=== PATIENT | female | born 1950 | race Caucasian/White ===

== ENCOUNTER 2016-05-09 01:05 | Emergency (ER) | payer MEDICARE ==
[~2016-05-09] VITALS: Ht 165.1 cm; Wt 99.8 kg
[~2016-05-09 01:05] MED LIST: AMIO200T2 PO; AMIO200T7 PO; ASPI325T4 PO; CARB1TAB44 PO; CHRO1TAB4 PO; CLON0.5T3 PO; DIAZ5TAB4 PO; DILT120C4 PO; ERYT250T14 PO; FLUO20TA11 PO; FLUO40CA2 PO; FLUO40CA9 PO; HYDR-2666 PO; Indomethacin PO; LEVO75TA5 PO; LEVO88TA2 PO; LISI-338 PO; LISI10TA PO; METR500T PO; ONDA4TAB7 PO; OXYC-250 PO; PANT40GR PO; PANT40TA3 PO; PANT40TA5 PO; PRAV10TA2 PO; PRAV40TA PO; PRIM250T PO; PRIM50TA24 PO; RASP100C PO; Sennosides/Docusate Sodium PO; TAMS0.4C97 PO; WARF6TAB PO; ZOLP10TA PO; ZOLP5TAB PO; vitaminB12; warfarin PO
[2016-05-09] MEDS ORDERED: IV NORMAL SALINE 1000ML BAG 1,000 ML IV ONE (02:00)
[2016-05-09] MEDS ORDERED: MECLIZINE HCL 12.5 MG TABLET. PO ONE (02:00)
[2016-05-09] MEDS ORDERED: ONDANSETRON PF 4 MG/2 ML VIAL. IV ONE (02:00)
[2016-05-09 02:01] LABS: BASO # 0.1 x10^3/uL (0.0-0.2); BASO % 1 % (0-3); EOS % 4 % (0-3); LYMPH # 7.5 x10^3/uL (1.0-4.8); LYMPH % 62 % (24-48); MEAN CORPUSCULAR HEMOGLOBIN 31 pg (25-35); MEAN CORPUSCULAR HGB CONC 33 g/dL (31-37); MEAN CORPUSCULAR VOLUME 94 fL (79-100); MONO % 4 % (0-9); NEUT % 30 % (31-73); PLATELET COUNT 188 x10^3/uL (140-400); RED BLOOD COUNT 4.25 x10^6/uL (3.50-5.40); WHITE BLOOD COUNT 12.1 x10^3/uL (4.0-11.0)
--- NOTE | 2016-05-09 02:03 | PHYS DOC ---
Past Medical History Past Medical History: A-Fib, Anxiety, Arrhythmia, Depression, GERD, High Cholesterol, Heart Disease, Hypertension, Hypothyroid, [place], Other Additional Past Medical Histor: LEUKEMIA CCL, colitis, SKIN CA Past Surgical History: Hysterectomy, Pacemaker Alcohol Use: None Drug Use: None Adult General Chief Complaint Chief Complaint: DIZZY/LIGHT HEADED HPI HPI This is a 65-year-old female who presents with acute onset of dizziness as well as nausea and several episodes of vomiting just prior to arrival. She states she was sitting in her bed watching TV when this started. She states earlier today everything was otherwise normal. She denies any recent illness although her does state she has been coughing. She denies any ringing in her ears. . She states she has had dizziness before but not to this degree. She denies any chest pain or SOB. She denies any fever/chills. Review of Systems Review of Systems Constitutional: Denies fever or chills [] Eyes: Denies change in visual acuity, redness, or eye pain [] HENT: Denies nasal congestion or sore throat [] Respiratory: Denies cough or shortness of breath [] Cardiovascular: No additional information not addressed in HPI [] GI: Denies abdominal pain, has nausea, has vomiting, denies bloody stools, denies diarrhea [] : Denies dysuria or hematuria [] Musculoskeletal: Denies back pain or joint pain [] Integument: Denies rash or skin lesions [] Neurologic: Denies headache, focal weakness or sensory changes [] Endocrine: Denies polyuria or polydipsia [] Current Medications Current Medications Current Medications Medications (Trade) Dose Ordered Sig/Taylor Start Time Stop Time Status Last Admin Dose Admin Diazepam (Valium) 2 mg 1X ONCE 05/09/16 03:30 05/09/16 03:31 DC 05/09/16 03:21 2 MG Meclizine HCl (Antivert) 50 mg 1X ONCE 05/09/16 02:00 05/09/16 02:01 DC 05/09/16 02:11 50 MG Ondansetron HCl (Zofran) 4 mg 1X ONCE 05/09/16 02:00 05/09/16 02:01 DC 05/09/16 02:11 4 MG Sodium Chloride (Iv Sodium Chloride 0.9% 1000ml Bag) 1,000 ml @ 1,000 mls/hr 1X ONCE 05/09/16 02:00 05/09/16 02:59 DC 05/09/16 02:00 1,000 MLS/HR Allergies Allergies Allergies Coded Allergies Type Severity Reaction Last Updated Verified codeine Allergy Intermediate Swelling 12/31/13 Yes iodine Allergy Intermediate hives--ok with premedication 03/13/14 Yes levofloxacin Allergy Intermediate itching 12/23/13 Yes Physical Exam Physical Exam Constitutional: Well developed, well nourished, no acute distress, non-toxic appearance. [] HENT: Normocephalic, atraumatic, bilateral external ears normal, oropharynx moist, no oral exudates, nose normal. [] Eyes: PERRLA, EOMI, conjunctiva normal, no discharge, left sided horizontal nystagmus. [] Neck: Normal range of motion, no tenderness, supple, no stridor. [] Cardiovascular:Heart rate regular rhythm, no murmur [] Lungs & Thorax: Bilateral breath sounds clear to auscultation [] Abdomen: Bowel sounds normal, soft, no tenderness, no masses, no pulsatile masses. [] Skin: Warm, dry, no erythema, no rash. [] Back: No tenderness, no CVA tenderness. [] Extremities: No tenderness, no cyanosis, no clubbing, ROM intact, no edema. [] Neurologic: Alert and oriented X 3, normal motor function, normal sensory function, no focal deficits noted. [] Psychologic: Affect normal, judgement normal, mood normal. [] Current Patient Data Vital Signs Vital Signs Date Time Temp Pulse Resp B/P Pulse Ox O2 Delivery O2 Flow Rate FiO2 05/09/16 02:07 59 139/74 59 Room Air 05/09/16 01:19 97.9 18 97.9 Lab Values Laboratory Tests Test 05/09/16 01:50 05/09/16 02:28 White Blood Count 12.1x10^3/uL (4.0-11.0) H Red Blood Count 4.25x10^6/uL (3.50-5.40) Hemoglobin 13.0g/dL (12.0-15.5) Hematocrit 40.0% (36.0-47.0) Mean Corpuscular Volume 94fL (79-100) Mean Corpuscular Hemoglobin 31pg (25-35) Mean Corpuscular Hemoglobin Concent 33g/dL (31-37) Red Cell Distribution Width 14.0% (11.5-14.5) Platelet Count 188x10^3/uL (140-400) Neutrophils (%) (Auto) 30% (31-73) L Lymphocytes (%) (Auto) 62% (24-48) H Monocytes (%) (Auto) 4% (0-9) Eosinophils (%) (Auto) 4% (0-3) H Basophils (%) (Auto) 1% (0-3) Neutrophils # (Auto) 3.6x10^3uL (1.8-7.7) Lymphocytes # (Auto) 7.5x10^3/uL (1.0-4.8) H Monocytes # (Auto) 0.5x10^3/uL (0.0-1.1) Eosinophils # (Auto) 0.4x10^3/uL (0.0-0.7) Basophils # (Auto) 0.1x10^3/uL (0.0-0.2) Segmented Neutrophils % 29% (35-66) L Lymphocytes % 58% (24-48) H Atypical Lymphocytes % (Manual) 3% (0-0) H Monocytes % 2% (0-10) Eosinophils % 8% (0-5) H Smudge Cells Present Platelet Estimate Adequate (ADEQUATE) Anisocytosis Slight Sodium Level 141mmol/L (136-145) Potassium Level 4.0mmol/L (3.5-5.1) Chloride Level 105mmol/L (98-107) Carbon Dioxide Level 28mmol/L (21-32) Anion Gap 8 (6-14) Blood Urea Nitrogen 26mg/dL (7-20) H Creatinine 1.2mg/dL (0.6-1.0) H Estimated GFR (Cockcroft-Gault) 44.8 Glucose Level 146mg/dL (70-99) H Calcium Level 10.1mg/dL (8.5-10.1) Troponin I Quantitative < 0.017ng/mL (0.000-0.055) Urine Collection Type Unknown Urine Color Yellow Urine Clarity Clear Urine pH 6.0 Urine Specific [place] 1.020 Urine Protein Negativemg/dL (NEG-TRACE) Urine Glucose (UA) Negativemg/dL (NEG) Urine Ketones (Stick) Negativemg/dL (NEG) Urine Blood Negative (NEG) Urine Nitrite Negative (NEG) Urine Bilirubin Negative (NEG) Urine Urobilinogen Dipstick 1.0mg/dL (0.2 mg/dL) Urine Leukocyte Esterase Trace (NEG) Urine RBC Occ/HPF (0-2) Urine WBC 1-4/HPF (0-4) Urine Squamous Epithelial Cells Few/LPF Urine Bacteria Few/HPF (0-FEW) Urine Hyaline Casts Few/HPF Urine Mucus Mod/LPF Laboratory Tests 05/09/16 01:50 Laboratory Tests 05/09/16 01:50 EKG EKG EKG as interpreted by me reveals an irregular rhythm with rate of 61 bpm. There are no obvious ischemic findings. Radiology/Procedures Radiology/Procedures CT of the head without contrast demonstrates the following: Ventricles and sulci are mildly prominent for age. No midline shift or mass effect. Mild patchy low density in the deep/subcortical periventricular white matter, unchanged. No hemorrhage or extra-axial collection. Posterior fossa and brainstem unremarkable. Visualized paranasal sinuses and mastoid air cells are clear. No acute calvarial abnormality. Course & Med Decision Making Course & Med Decision Making Pertinent Labs and Imaging studies reviewed. (See chart for details) This is a 65 yo female who is presenting with classic benign vertigo symptoms with acute onset and horizontal nystagmus as well as positive orthostatic vital signs. I will be doing a workup with a head CT and giving zofran, meclizine, and fluids and she will be reassessed after medications for symptom improvement. Upon my reassessment, the patient feels improved but has some restless leg symptoms and still slightly dizzy and so I will order up a 2 mg IV dose of Valium and will ambulate the patient. The patient successfully ambulated around the department without difficulty and states she was mildly unsteady but this is normal for her. I'll be discharging her with a course of Zofran and meclizine and she'll follow closely with her primary care doctor for symptom resolution. Patient did have a relatively low O2 sat in the low 90s which she states she is aware of and is being evaluated for at home oxygen. This does not appear to be an acute finding or related to her symptoms today. Her laboratory workup was essentially unremarkable and her EKG did not reveal any acute concerning findings. Dragon Disclaimer Dragon Disclaimer This electronic medical record was generated, in whole or in part, using a voice recognition dictation system. Departure Departure Impression: Primary Impression: BPV (benign positional vertigo) Disposition: 01 HOME, SELF-CARE Referrals: UNKNOWN PCP NAME (PCP) Patient Instructions: Benign Positional Vertigo Additional Instructions: Please take your medications as prescribed. Return to the ER if you develop any worsening of your symptoms. Follow up with your primary care doctor in the next 2-3 days for your symptoms. Scripts Meclizine Hcl 25 Mg [id number] Mg PO DAILY PRN dizziness #10 TAB Prov:APPLE WEST DO 05/09/16 Ondansetron Hcl (Zofran)4 Mg Tablet4 Mg PO BID PRN NAUSEA/VOMITING #10 TAB Prov:APPLE WEST DO 05/09/16 APPLE WEST DO May 09, 2016 02:03
[2016-05-09 02:13] LABS: CALCIUM 10.1 mg/dL (8.5-10.1); CREATININE 1.2 mg/dL (0.6-1.0); GFR 44.8
--- NOTE | 2016-05-09 02:25 | RAD ---
PROCEDURE CT head without contrast dated 05/09/2016. HISTORY dizziness. Leukemia. TECHNIQUE Contiguous axial imaging of the head was performed from skull base to vertex. No contrast administered.Exposure: One or more of the following individualized dose reduction techniques were utilized for this exam: 1. Automated exposure control. 2. Adjustment of the mA and/or kV according to patient size. 3. Use of iterative reconstruction technique. COMPARISON 03/13/2014. FINDINGS Ventricles and sulci are mildly prominent for age. No midline shift or mass effect. Mild patchy low density in the deep/subcortical periventricular white matter, unchanged. No hemorrhage or extra-axial collection. Posterior fossa and brainstem unremarkable. Visualized paranasal sinuses and mastoid air cells are clear. No acute calvarial abnormality. IMPRESSION - No evidence of acute intracranial hemorrhage or mass. - Mild chronic small vessel ischemic changes and atrophy. Electronically signed by: Endy Victoria (May 09, 2016 02:24:04)
[2016-05-09 02:35] LABS: BILIRUBIN,URINE NEGATIVE (NEG); GLUCOSE,URINE NEGATIVE (NEG); NITRITE,URINE NEGATIVE (NEG); PROTEIN,URINE NEGATIVE (NEG-TRACE)
[2016-05-09 02:44] LABS: RBC,URINE OCC /HPF (0-2)
[2016-05-09 02:45] LABS: BACTERIA,URINE FEW /HPF (0-FEW); SQUAMOUS EPITHELIAL CELL,UR FEW /LPF
[2016-05-09 03:05] LABS: % EOS 8 % (0-5); ANISOCYTOSIS SLIGHT; PLT ESTIMATE ADEQUATE (ADEQUATE); SMUDGE CELLS PRESENT
[2016-05-09] MEDS ORDERED: DIAZEPAM 10 MG/2 ML DISP.SYRIN. IV ONE (03:30)
[2016-05-09] MEDS ORDERED: ONDA4TAB7 PO (03:58)
[2016-05-09] MEDS ORDERED: MECL25TA3 PO (03:58)
[2016-05-09 04:07] VITALS: BP 136/80
--- NOTE | 2016-05-09 06:50 | EKG ---
[facility] [address] [place] [address] Test Date: 2016-05-09 Test Time: 01:19:00 Pat Name: NINOSKA RANDLE Department: Room: Gender: F Laborer/Grade Check: : 1950 Requested By: APPLE WEST Order Number: [id number] Reading MD: Measurements Intervals [place] Rate: 61 P: MD: QRS: 17 QRSD: 92 T: 56 QT: 412 QTc: 420 Interpretive Statements IRREGULAR RHYTHM, NO P-WAVE FOUND T ABNORMALITY IN HIGH LATERAL LEADS RI6.01 Unconfirmed report No previous ECG available for comparison
== END 2016-05-09 04:13 | disposition home or self-care (01) ==
LOC: ER 01:05
DX: H81.10 Benign paroxysmal vertigo, unspecified ear (principal); R42 Dizziness and giddiness; R11.2 Nausea with vomiting, unspecified; R05 Cough; E03.9 Hypothyroidism, unspecified; E78.00 Pure hypercholesterolemia, unspecified; F32.9 Major depressive disorder, single episode, unspecified; I48.91 Unspecified atrial fibrillation; I25.2 Old myocardial infarction; K21.9 Gastro-esophageal reflux disease without esophagitis; I11.9 Hypertensive heart disease without heart failure; F41.9 Anxiety disorder, unspecified; Z90.710 Acquired absence of both cervix and uterus; Z95.0 Presence of cardiac pacemaker; Z88.5 Allergy status to narcotic agent; Z88.1 Allergy status to other antibiotic agents; Z91.041 Radiographic dye allergy status
CPT/HCPCS: 36415; 70450; 80048; 81001; 84484; 85007; 85027; 87086; 93005; 96361; 96374; 96375; 99285; J2405; J3360; J7030; J8597

== ENCOUNTER 2016-05-13 16:30 | Emergency (ER) | payer MEDICARE ==
[~2016-05-13] VITALS: Ht 165.1 cm; Wt 99.8 kg
[~2016-05-13 16:30] MED LIST changes: +MECL25TA3 PO
[2016-05-13 16:44] VITALS: BP 142/79
--- NOTE | 2016-05-13 17:34 | PHYS DOC ---
Past Medical History Past Medical History: A-Fib, Anxiety, Arrhythmia, Depression, GERD, High Cholesterol, Heart Disease, Hypertension, Hypothyroid, [place], Other Additional Past Medical Histor: LEUKEMIA CCL, colitis, SKIN CA removed Past Surgical History: Hysterectomy, Pacemaker Alcohol Use: None Drug Use: None Adult General Chief Complaint Chief Complaint: POST-OP PROBLEM HPI HPI Patient is a 65 year old female who states that she had a skin cancer removed from her forehead at on , 2 days ago. Today she notes that she has some swelling of her eyelids and also some reddish discoloration on the medial aspect of her eyelids bilaterally. Her eyes and eyelids are not bothering her except that they're swollen and she is afraid that might get more swollen. She hasn't had any problems from the surgery and still has a bandage on her forehead. Procedure was done at [facility]. Review of Systems Review of Systems Constitutional: Denies fever or chills [] Eyes: As in history of present illness HENT: Denies nasal congestion or sore throat [] Respiratory: Denies cough or shortness of breath [] Integument: Denies rash or skin lesions other than as in history of present illness Neurologic: Denies headache, focal weakness or sensory changes [] Allergies Allergies Allergies Coded Allergies Type Severity Reaction Last Updated Verified codeine Allergy Intermediate Swelling 12/31/13 Yes iodine Allergy Intermediate hives--ok with premedication 03/13/14 Yes levofloxacin Allergy Intermediate itching 12/23/13 Yes Physical Exam Physical Exam Constitutional: Well developed, well nourished, no acute distress, non-toxic appearance. Alert, mentating normally. HENT: Normocephalic, atraumatic, bilateral external ears normal, oropharynx moist, no oral exudates, nose normal. There is a small bandage in place on the forehead near the hairline that is clean and surrounding skin appears healthy and without bleeding or swelling. Eyes: PERRLA, EOMI, conjunctiva normal, no discharge. Bilateral eyelids are mildly to moderately swollen. There is subcutaneous erythema that appears to have been subcutaneous bleeding that has settled on the medial aspect of her eyes bilaterally. Neck: Normal range of motion, no stridor. [] Skin: Warm, dry, no erythema, no rash. [] Extremities: No tenderness, no cyanosis, no clubbing, ROM intact, no edema. [] Neurologic: Alert and oriented X 3, normal motor function, normal sensory function, no focal deficits noted. [] Current Patient Data Vital Signs Vital Signs Date Time Temp Pulse Resp B/P Pulse Ox O2 Delivery O2 Flow Rate FiO2 05/13/16 16:44 98.1 63 19 142/79 96 Room Air 98.1 EKG EKG [] Radiology/Procedures Radiology/Procedures [] Course & Med Decision Making Course & Med Decision Making Pertinent Labs and Imaging studies reviewed. (See chart for details) 65-year-old female who had a skin cancer removed from her forehead 2 days ago and comes in because she has some swelling and redness of her eyelids. On appearance, it appears to me that she has had some subcutaneous bleeding that has settled down to her medial aspect of her eyelids bilaterally. I reassured the patient and discussed the mechanism of settling of subcutaneous blood with gravity. I encouraged her to sleep with her head elevated, even in a recliner chair, to avoid further swelling and I did caution her that she may have some further swelling and I would not worry about that. She has a follow-up next week at and she is to keep that appointment. [] Dragon Disclaimer Dragon Disclaimer This electronic medical record was generated, in whole or in part, using a voice recognition dictation system. Departure Departure Impression: Primary Impression: Swelling of eyelid Disposition: 01 HOME, SELF-CARE Condition: STABLE Referrals: UNKNOWN PCP NAME (PCP) Additional Instructions: As we discussed, the redness and swelling around your eyelids is caused by bleeding under the skin that settled with gravity. It is not dangerous and will go away by itself. It may get more swollen if you lay down flat. Keep your head elevated above your heart, for example sleep in a recliner chair, until the swelling is better. This may cause more of a bruising appearance over the next few days. SWAPNIL RODAS MD May 13, 2016 17:34
== END 2016-05-13 18:00 | disposition home or self-care (01) ==
LOC: ER 17:58
DX: H57.8 Other specified disorders of eye and adnexa (principal); E78.00 Pure hypercholesterolemia, unspecified; I10 Essential (primary) hypertension; I25.2 Old myocardial infarction; E03.9 Hypothyroidism, unspecified; Z88.1 Allergy status to other antibiotic agents; Z88.5 Allergy status to narcotic agent; Z91.041 Radiographic dye allergy status
CPT/HCPCS: 99281